=== PATIENT | male | born 1950 ===

== ENCOUNTER 2023-07-31 17:47 | Inpatient (IN) | payer OTHER ==
[2023-07-31] MEDS ORDERED: MAG HYDROX/AL HYDROX/SIMETH 30 ML UNIT-DOSE CUP ONE (19:43)
[2023-07-31] MEDS ORDERED: ONDANSETRON 4 MG/2 ML VIAL ONE (19:43)
[2023-07-31] MEDS ORDERED: FAMOTIDINE 20 MG/50 ML IVPB 20 MG/50 ML MG IVPB ONE (19:43)
[2023-07-31] MEDS: ONDANSETRON 4 MG/2 ML VIAL IVPUSH ONE (19:51)
[2023-07-31] MEDS: FAMOTIDINE 20 MG/50 ML IVPB 20 MG/50 ML MG IVPB ONE (19:51)
[2023-07-31] MEDS: MAG HYDROX/AL HYDROX/SIMETH 30 ML UNIT-DOSE CUP PO ONE (19:51)
[2023-07-31 19:52] LABS: BASO % 0.6 % (0-2.0); EOS % 2.6 % (0-4.5); HEMATOCRIT 42.3 % (35.4-49); HEMOGLOBIN 14.1 GM/dL (11.7-16.9); LYMPH % 24.8 % (8-40); MCH 27.9 pg (25.7-33.7); MCHC 33.3 g/dl (32.0-35.9); MEAN PLT VOLUME 8.2 fl (7.5-11.1); MONO % 18.8 % (3.8-10.2); NEUT % 53.2 % (42.8-82.8); PLATELET COUNT 207 10^3/uL (134-434); RBC 5.03 M/mm3 (4.00-5.60); RDW 13.8 % (11.9-15.9)
[2023-07-31 20:01] LABS: INR 1.21 (0.83-1.09); PROTHROMBIN TIME (PATIENT) 13.6 SEC (9.7-13.0)
[2023-07-31 20:03] LABS: ACTIVATED PTT 31.4 SECONDS (25.2-36.5)
[2023-07-31 20:09] LABS: CHLORIDE 102 mmol/L (98-107); SODIUM 133 mmol/L (136-145)
[2023-07-31 20:11] LABS: CALCIUM 8.7 mg/dL (8.5-10.1)
[2023-07-31 20:12] LABS: ALBUMIN 3.2 g/dl (3.4-5.0); ANION GAP 1 mmol/L (4-13); BLOOD UREA NITROGEN 9.9 mg/dL (7-18); CO2 30 mmol/L (21-32); GLUCOSE,RANDOM 103 mg/dL (74-106); MAGNESIUM 1.8 mg/dL (1.8-2.4)
[2023-07-31 20:15] LABS: SGOT/AST 129 U/L (15-37); SGPT/ALT 77 U/L (13-61)
[2023-07-31 20:17] LABS: BILIRUBIN,TOTAL 1.2 mg/dL (0.2-1); TOT PROT 6.4 g/dl (6.4-8.2)
[2023-07-31 20:18] LABS: ALK PHOS 112 U/L (45-117)
[2023-07-31] MEDS ORDERED: ACETAMINOPHEN INJECTION 100 ML IVPB ONE (20:24)
[2023-07-31] MEDS: ACETAMINOPHEN 1000 MG/100 ML BAG IVPB ONE (20:57)
[2023-07-31] MEDS: SODIUM CHLORIDE 0.9% 500 ML INFUS.BAG IV ONE (21:12)
[2023-07-31 22:30] LABS: BILIRUBIN,DIRECT 0.8 mg/dL (0.0-0.2)
[2023-07-31] MEDS ORDERED: ONDANSETRON 4 MG/2 ML VIAL IVPUSH PRN (22:45)
[2023-07-31] MEDS ORDERED: ACETAMINOPHEN 1000 MG/100 ML BAG IVPB PRN (22:46)
[2023-08-01 00:33] VITALS: BMI 29.9
[2023-08-01 07:52] LABS: BASO % 0.7 % (0-2.0); HEMATOCRIT 43.9 % (35.4-49); HEMOGLOBIN 14.4 GM/dL (11.7-16.9); LYMPH % 39.5 % (8-40); MCH 27.8 pg (25.7-33.7); MCHC 32.8 g/dl (32.0-35.9); MEAN CELL VOLUME 84.8 fl (80-96); MEAN PLT VOLUME 8.7 fl (7.5-11.1); MONO % 19.5 % (3.8-10.2); NEUT % 36.3 % (42.8-82.8); PLATELET COUNT 228 10^3/uL (134-434); RBC 5.18 M/mm3 (4.00-5.60); RDW 13.4 % (11.9-15.9); WHITE BLOOD COUNT 3.4 K/mm3 (4.0-10.0)
[2023-08-01 08:00] LABS: POTASSIUM 4.5 mmol/L (3.5-5.1)
[2023-08-01 08:03] LABS: CALCIUM 8.9 mg/dL (8.5-10.1)
[2023-08-01 08:04] LABS: ALBUMIN 3.1 g/dl (3.4-5.0); BLOOD UREA NITROGEN 9.2 mg/dL (7-18); MAGNESIUM 1.9 mg/dL (1.8-2.4)
[2023-08-01 08:06] LABS: BILIRUBIN,DIRECT 2.8 mg/dL (0.0-0.2)
[2023-08-01 08:07] LABS: CREATININE 1.1 mg/dL (0.55-1.3); PHOSPHOROUS 3.2 mg/dL (2.5-4.9)
[2023-08-01 08:08] LABS: TOT PROT 6.3 g/dl (6.4-8.2)
[2023-08-01 08:10] LABS: BILIRUBIN,TOTAL 3.8 mg/dL (0.2-1)
[2023-08-01] MEDS: PIPERACILLIN/TAZOB 3.375 GM 3.375 GM in DEXTROSE 5%-WATER - 50 ML IVPB SCH (11:23)
[2023-08-01] MEDS: ENOXAPARIN NA (PORCINE) 40 MG/0.4 ML DISP.SYRIN SQ SCH (11:23)
[2023-08-01] MEDS: POLYETHYLENE GLYCOL (HEALTHYLAX) 3350 17 GM PACKET PO SCH (15:56)
[2023-08-01] MEDS: LORazepam 2 MG/ML SDV VIAL IVPUSH PRN (17:37)
[2023-08-02 09:31] LABS: BASO % 1.5 % (0-2.0); EOS % 6.1 % (0-4.5); HEMOGLOBIN 14.5 GM/dL (11.7-16.9); LYMPH % 41.7 % (8-40); MCH 28.2 pg (25.7-33.7); MCHC 33.8 g/dl (32.0-35.9); MEAN CELL VOLUME 83.4 fl (80-96); MEAN PLT VOLUME 8.5 fl (7.5-11.1); MONO % 18.2 % (3.8-10.2); NEUT % 32.5 % (42.8-82.8); PLATELET COUNT 236 10^3/uL (134-434); RBC 5.16 M/mm3 (4.00-5.60); RDW 13.2 % (11.9-15.9); WHITE BLOOD COUNT 3.6 K/mm3 (4.0-10.0)
[2023-08-02 09:34] LABS: INR 1.35 (0.83-1.09); PROTHROMBIN TIME (PATIENT) 15.1 SEC (9.7-13.0)
[2023-08-02 09:51] LABS: POTASSIUM 4.3 mmol/L (3.5-5.1)
[2023-08-02] MEDS: LACTATED RINGERS SOLUTION 1,000 ML IV SCH (10:01)
[2023-08-02 10:04] LABS: ALBUMIN 2.9 g/dl (3.4-5.0)
[2023-08-02 10:05] LABS: BLOOD UREA NITROGEN 8.5 mg/dL (7-18); CALCIUM 8.9 mg/dL (8.5-10.1)
[2023-08-02 10:07] LABS: BILIRUBIN,DIRECT 3.2 mg/dL (0.0-0.2)
[2023-08-02 10:08] LABS: CREATININE 1.2 mg/dL (0.55-1.3)
[2023-08-02 10:09] LABS: TOT PROT 5.7 g/dl (6.4-8.2)
[2023-08-02] MEDS ORDERED: FENTANYL CITRATE/PF 50 MCG/ML VIAL ONE (11:49)
[2023-08-02] MEDS: CEFTRIAXONE 1 GM in DEXTROSE 5%-WATER - 50 ML IVPB SCH (17:19)
[2023-08-02] MEDS: LACTATED RINGERS SOLUTION 1,000 ML/1,000 ML INFUS.BAG IV SCH ×2 (17:20→22:21)
[2023-08-03 09:07] LABS: EOS % 5.5 % (0-4.5); HEMOGLOBIN 13.7 GM/dL (11.7-16.9); LYMPH % 37.1 % (8-40); MCH 27.7 pg (25.7-33.7); MCHC 32.7 g/dl (32.0-35.9); MEAN CELL VOLUME 84.7 fl (80-96); MEAN PLT VOLUME 8.3 fl (7.5-11.1); MONO % 16.2 % (3.8-10.2); NEUT % 40.2 % (42.8-82.8); PLATELET COUNT 234 10^3/uL (134-434); RBC 4.96 M/mm3 (4.00-5.60); RDW 13.5 % (11.9-15.9); WHITE BLOOD COUNT 3.8 K/mm3 (4.0-10.0)
[2023-08-03 09:27] LABS: POTASSIUM 4.1 mmol/L (3.5-5.1)
[2023-08-03 09:33] LABS: CALCIUM 9.2 mg/dL (8.5-10.1)
[2023-08-03 09:34] LABS: BLOOD UREA NITROGEN 9.1 mg/dL (7-18)
[2023-08-03 09:38] LABS: BILIRUBIN,TOTAL 2.3 mg/dL (0.2-1); CREATININE 1.2 mg/dL (0.55-1.3)
[2023-08-03 09:39] LABS: TOT PROT 6.1 g/dl (6.4-8.2)
[2023-08-04 07:36] LABS: ALBUMIN 2.8 g/dl (3.4-5.0); BLOOD UREA NITROGEN 6.5 mg/dL (7-18)
[2023-08-04 07:38] LABS: EOS % 6.3 % (0-4.5); HEMATOCRIT 39.6 % (35.4-49); HEMOGLOBIN 13.1 GM/dL (11.7-16.9); LYMPH % 42.6 % (8-40); MCHC 33.1 g/dl (32.0-35.9); MEAN CELL VOLUME 84.6 fl (80-96); MEAN PLT VOLUME 8.4 fl (7.5-11.1); MONO % 15.5 % (3.8-10.2); NEUT % 34.6 % (42.8-82.8); PLATELET COUNT 230 10^3/uL (134-434); RBC 4.68 M/mm3 (4.00-5.60); RDW 13.3 % (11.9-15.9)
[2023-08-04 07:40] LABS: BILIRUBIN,TOTAL 1.3 mg/dL (0.2-1); TOT PROT 5.7 g/dl (6.4-8.2)
[2023-08-04] MEDS ORDERED: BUPIVACAINE HCL/PF 0.25% (2.5MG/ML) 10 ML VIAL ONE (07:59)
[2023-08-04] MEDS ORDERED: LIDOCAINE HCL/PF 2% SDV 5ML VIAL ONE (07:59)
[2023-08-04] MEDS ORDERED: MIDAZOLAM HCL 2 MG/2 ML SINGLE DOSE VIAL ONE (08:00)
[2023-08-04] MEDS ORDERED: ROCURONIUM BROMIDE 50 MG/5 ML SYRINGE ONE (08:00)
[2023-08-04] MEDS ORDERED: FENTANYL CITRATE/PF 50 MCG/ML VIAL ONE (08:00)
[2023-08-04] MEDS ORDERED: SUCCINYLCHOLINE CHLORIDE 200 MG/10 ML SYRINGE ONE (08:00)
[2023-08-04] MEDS ORDERED: PROPOFOL 20 ML ONE (08:00)
[2023-08-04] MEDS ORDERED: cefOXitin SODIUM 2 GM VIAL (RESTRICTED TO ID) IVPB ONE (08:03)
[2023-08-04] MEDS: cefOXitin SODIUM 2 GM VIAL (RESTRICTED TO ID) IVPB ONE (08:30)
[2023-08-04] MEDS ORDERED: DEXAMETHASONE SOD PHOSPHATE 4 MG/1 ML VIAL ONE (08:38)
[2023-08-04] MEDS: BUPIVACAINE HCL 0.25% 125 MG/50 ML VIAL INF ONE (09:19)
[2023-08-04] MEDS ORDERED: NEOSTIGMINE METHYLSULFATE 0.5 MG/1 ML - 10 ML MDV ONE (09:36)
[2023-08-04] MEDS ORDERED: GLYCOPYRROLATE 0.2 MG/1 ML VIAL ONE (09:36)
[2023-08-04] MEDS ORDERED: PROMETHAZINE HCL 25 MG/1 ML VIAL IVPB PRN ×2 (09:58→10:20)
[2023-08-04] MEDS ORDERED: FENTANYL CITRATE/PF 50 MCG/ML VIAL IVPUSH PRN ×2 (09:58)
[2023-08-04] MEDS ORDERED: ONDANSETRON 4 MG/2 ML VIAL IVPUSH PRN (09:58)
[2023-08-04] MEDS ORDERED: ACETAMINOPHEN 1000 MG/100 ML BAG IVPB ONE (09:59)
[2023-08-04] MEDS: ACETAMINOPHEN 1000 MG/100 ML BAG IVPB ONE (10:20)
[2023-08-04] MEDS ORDERED: ONDANSETRON 4 MG/2 ML VIAL ONE (10:49)
[2023-08-04] MEDS: ONDANSETRON 4 MG/2 ML VIAL IVPUSH PRN (10:51)
[2023-08-04] MEDS: LACTATED RINGERS SOLUTION 1,000 ML IV SCH ×2 (14:40→19:02)
[2023-08-04] MEDS: PIPERACILLIN/TAZOB 3.375 GM 3.375 GM in DEXTROSE 5%-WATER - 50 ML IVPB SCH (14:41)
[2023-08-04] MEDS: ACETAMINOPHEN 1000 MG/100 ML BAG IVPB SCH (17:49)
[2023-08-04] MEDS: POLYETHYLENE GLYCOL (HEALTHYLAX) 3350 17 GM PACKET PO SCH (21:22)
[2023-08-05] MEDS: PANTOPRAZOLE SODIUM 40 MG VIAL IVPUSH ONE (00:22)
[2023-08-05] MEDS: MAG HYDROX/AL HYDROX/SIMETH -MYLANTA- ORAL SUSPENSION PO ONE (01:02)
[2023-08-05 09:22] LABS: BASO % 0.3 % (0-2.0); HEMATOCRIT 39.5 % (35.4-49); HEMOGLOBIN 12.7 GM/dL (11.7-16.9); LYMPH % 9.9 % (8-40); MCH 27.5 pg (25.7-33.7); MCHC 32.2 g/dl (32.0-35.9); MEAN CELL VOLUME 85.3 fl (80-96); MEAN PLT VOLUME 8.9 fl (7.5-11.1); MONO % 10.6 % (3.8-10.2); NEUT % 79.2 % (42.8-82.8); PLATELET COUNT 263 10^3/uL (134-434); RBC 4.63 M/mm3 (4.00-5.60); RDW 13.5 % (11.9-15.9); WHITE BLOOD COUNT 10.4 K/mm3 (4.0-10.0)
[2023-08-05 09:34] LABS: POTASSIUM 4.5 mmol/L (3.5-5.1)
[2023-08-05 09:39] LABS: BLOOD UREA NITROGEN 9.3 mg/dL (7-18); CALCIUM 8.7 mg/dL (8.5-10.1)
[2023-08-05 09:40] LABS: ALBUMIN 2.9 g/dl (3.4-5.0)
[2023-08-05 09:43] LABS: TOT PROT 5.9 g/dl (6.4-8.2)
[2023-08-05] MEDS ORDERED: PANTOPRAZOLE 20 MG TABLET PO SCH (10:00)
[2023-08-05] MEDS: PANTOPRAZOLE 20 MG TABLET PO SCH (10:45)
[2023-08-05 14:14] VITALS: BP 135/79; PULSE 71; RESP 20; TEMP 97.3
== END 2023-08-05 16:46 | disposition home or self-care (01) | DRG 263 ==
LOC: JER 17:47 → JERBED 22:07 → J7W 23:34 → OBSVTOIN 08-02 12:22
PROVIDERS: ADMIT Internal Medicine; ATTEND Nurse Practitioner
PROC: 0FC98ZZ Extirpation of Matter from Common Bile Duct, Via Natural or Artificial Opening Endoscopic (ICD-10-PCS; 2023-08-02)
PROC: BF14YZZ Fluoroscopy of Gallbladder, Bile Ducts and Pancreatic Ducts using Other Contrast (ICD-10-PCS; 2023-08-02)
PROC: 0F998ZZ Drainage of Common Bile Duct, Via Natural or Artificial Opening Endoscopic (ICD-10-PCS; 2023-08-02)
PROC: 8E0W4CZ Robotic Assisted Procedure of Trunk Region, Percutaneous Endoscopic Approach (ICD-10-PCS; 2023-08-04)
PROC: 0FT44ZZ Resection of Gallbladder, Percutaneous Endoscopic Approach (ICD-10-PCS; principal; 2023-08-04 07:26)
DX: K85.10 Biliary acute pancreatitis without necrosis or infection (principal); K80.00 Calculus of gallbladder with acute cholecystitis without obstruction; F17.210 Nicotine dependence, cigarettes, uncomplicated; I10 Essential (primary) hypertension; K80.42 Calculus of bile duct with acute cholecystitis without obstruction; R74.01 Elevation of levels of liver transaminase levels
CPT/HCPCS: 36415; 71045-TC-FY; 74177-TC; 74181-TC; 74330-TC; 76705-TC; 80048; 80053; 80076; 82150; 82248; 82550; 83605; 83690; 83735; 84100; 84478; 84484; 85025; 85610; 85730; 86140; 86704; 86708; 86803; 86850; 86900; 86901; 87340; 87517; 88304-TC; 93005; 93010; 94010; 94760; 99285-25; G0378; J0131; Q9967